=== PATIENT | female | born 1990 | race Caucasian/White ===

== ENCOUNTER 2020-10-28 08:16 | Emergency (ER) | payer OTHER ==
[~2020-10-28] VITALS: Ht 162.6 cm; Wt 63.5 kg
[~2020-10-28 08:16] MED LIST: VITAFOL-OB+DHA1 EACH PO
== END 2020-10-28 09:22 | disposition home or self-care (01) ==
LOC: ED 08:16
DX: M79.621 Pain in right upper arm (principal); T50.B95A Adverse effect of other viral vaccines, initial encounter
CPT/HCPCS: 99283

== ENCOUNTER 2020-11-14 14:40 | Emergency (ER) | payer OTHER ==
[~2020-11-14] VITALS: Ht 162.6 cm; Wt 63.5 kg
--- OUTSIDE RECORDS SUMMARY | 2020-11-14 14:48 | XMS ---
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 [place] - 2 Visits in 30 Days CARE PROVIDERS There are no care providers on record at this time. Frank has no Care Guidelines for this patient. [facility] NOTE: Visits indicate total known visits. ED/[facility] VISIT TRACKING (12 MO.) 11/14/2020 14:40 [facility] [place] TYPE: Emergency COMPLAINT: - CHEST TIGHTNESS 10/28/2020 08:17 [facility] [place] TYPE: Emergency COMPLAINT: - R UPPER ARM PAIN, TINGLING NUMBNESS DIAGNOSES: - Pain in right upper arm - Adverse effect of other viral vaccines, initial encounter - Pain in right upper arm INPATIENT VISIT TRACKING (12 MO.) No inpatient visits to display in this time frame [email or web address]
--- NOTE | 2020-11-15 20:06 | EKG ---
[facility] [address] [place], [place] [address] Signed Sinus tachycardia Otherwise normal ECG No previous ECGs available Confirmed by HERBERT NIXON DO ([id number]) on 11/15/2020 8:06:07 PM Electronically Signed By: HERBERT NIXON DO 11/15/20 2006 PATIENT NAME: KURT RODRIGUEZ Electrocardiogram DATE OF : 89 PHYSICIAN: HERBERT NIXON DO REPORT #: [id number] REPORT IS CONFIDENTIAL AND NOT TO BE RELEASED WITHOUT AUTHORIZATION
== END 2020-11-14 17:30 | disposition home or self-care (01) ==
LOC: ED 14:40
DX: R07.89 Other chest pain (principal); Z20.822 Contact with and (suspected) exposure to COVID-19
CPT/HCPCS: 71045; 80053; 84484; 84703; 85025; 85379; 93005; 93010; 99285-25; C9803; U0003